=== PATIENT | female | born 1980 | race Caucasian/White ===

== ENCOUNTER 2017-09-21 23:19 | Emergency (ER) | payer OTHER ==
[~2017-09-21] VITALS: Ht 162.6 cm; Wt 70.0 kg
[~2017-09-21 23:19] MED LIST: DICY1TAB26 PO; METH500T3 PO; TRAZ50TA4 PO; ULTR50TA PO; ZOFR4TAB3 SL
[2017-09-21 23:22] VITALS: BP 174/100; PULSE 90; RESP 16; TEMP 97.5; O2SAT 100
--- NOTE | 2017-09-22 00:22 | PD ---
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 Pt. reports that she was concerned because she was diagnosed with gonorrhea at the health department and she thought that contributed to her vaginal bleeding. Pt. reports she has been using a super tampon and a pad changing it every 30-40 minutes. Pt. reports associated nausea, weakness, fatigue and headache. Typically she has normal menstrual cycles. She has had a BTL. PFSH Past Medical History Diminished Hearing: No Gastrointestinal Disorders: Yes (coloitis) Musculoskeletal: Yes (CHRONIC BACK PAIN, BONE TUMOR L SHOULDER) Neurologic: Yes (SCIATICA) Tetanus Vaccination: < 5 Years ?: Not LMP: vaginal bleeding x3 weeks : 3 Para: 3 Tubal Ligation: Yes Past Surgical History Section: Yes (2002) Cholecystectomy: Yes Other Surgery: Yes (BREAST REDUCTION) Social History Alcohol Use: Yes (WEEKLY) Tobacco Use: No (01/12 PPD) Substance Use: No Allergies-Medications (Allergen,Severity, Reaction): Coded Allergies: aspirin (Unverified Allergy, Mild, N&V, 09/21/17) bismuth subsalicylate (Unverified Allergy, Mild, 09/21/17) Reported Meds & Prescriptions Reported Meds & Active Scripts Active Zofran ODT (Ondansetron HCl) 4 Mg Tab 4 Mg SL Q6HR PRN FOR NAUSEA/VOMITING Bentyl (Dicyclomine HCl) 20 Mg Tab 20 Mg PO Q8 PRN Reported Methocarbamol 500 Mg Tab 500 Mg PO Trazodone Hcl (Trazodone HCl) 50 Mg Tab 50 Mg PO HS Ultram (Tramadol HCl) 50 Mg Tab 50 Mg PO Q4H PRN Review of Systems Except as stated in HPI: all other systems reviewed are Neg Physical Exam Narrative GENERAL:Well appearing, no acute distress SKIN: Focused skin assessment warm and dry. HEAD: Atraumatic. Normocephalic. EYES: Pupils equal and round. No injection or drainage. ENT: Moist mucous membranes NECK: Trachea midline. CARDIOVASCULAR: Regular rate and rhythm. No murmur appreciated. RESPIRATORY: Clear to auscultation. Breath sounds equal bilaterally. GASTROINTESTINAL: Abdomen soft, non-tender, nondistended. MUSCULOSKELETAL: No obvious deformities. NEUROLOGICAL: Awake and alert. No obvious cranial nerve deficits. Moving all extremities. PSYCHIATRIC: Appropriate mood and affect; insight and judgment normal. Data Data Last Documented VS Vital Signs Date Time Temp Pulse Resp B/P (MAP) Pulse Ox O2 Delivery O2 Flow Rate FiO2 09/21/17 23:22 97.5 90 16 174/100 (124) 100 Room Air Orders Orders Complete Blood Count With Diff (09/22/17 00:16) Basic Metabolic Panel (Bmp) (09/22/17 00:16) ^ Insert Iv (09/22/17 00:16) Labs Laboratory Tests Test 09/22/17 00:33 White Blood Count 4.3 TH/MM3 Red Blood Count 3.55 MIL/MM3 Hemoglobin 11.5 GM/DL Hematocrit 34.0 % Mean Corpuscular Volume 95.8 FL Mean Corpuscular Hemoglobin 32.5 PG Mean Corpuscular Hemoglobin Concent 33.9 % Red Cell Distribution Width 14.9 % Platelet Count 215 TH/MM3 Mean Platelet Volume 8.0 FL Neutrophils (%) (Auto) 46.4 % Lymphocytes (%) (Auto) 45.2 % Monocytes (%) (Auto) 7.1 % Eosinophils (%) (Auto) 0.9 % Basophils (%) (Auto) 0.4 % Neutrophils # (Auto) 2.0 TH/MM3 Lymphocytes # (Auto) 2.0 TH/MM3 Monocytes # (Auto) 0.3 TH/MM3 Eosinophils # (Auto) 0.0 TH/MM3 Basophils # (Auto) 0.0 TH/MM3 CBC Comment DIFF FINAL Differential Comment MDM Medical Decision Making Medical Screen Exam Complete: Yes Emergency Medical Condition: Yes Interpretation(s) afebrile, hypertension mild anemia Differential Diagnosis menorrhagia, fibroid uterus, anemia Narrative Course This is a 37 year old female who presents to the emergency department with vaginal bleeding that's been going on for 1 month. She has a fairly benign pelvic exam with some scant dark blood. She's had a BTL in the past so I doubt this is a miscarriage. Hemoglobin is 11.5. I think patient is safe for outpatient follow-up with [facility]. Diagnosis Primary Impression: Menorrhagia Qualified Codes: N92.1 - Excessive and frequent menstruation with irregular cycle Patient Instructions: General Instructions Additional Instructions: Heavy bleeding can be caused by many things including: - One of your ovaries not releasing an egg during one or more months - Growths in the uterus called fibroids - A bleeding disorder that prevents your blood from clotting normally - Side effects of some medicines, such as some types of control or blood thinners - A problem with your thyroid (a gland that makes hormones) Return to the emergency department if you: Need to use both tampons and pads at the same time because you are bleeding so much Need to change your pad or tampon during the night Or are feeling lightheaded, weak, dizzy, have chest pain, shortness of breath or are having difficulty exerting yourself Follow up with [facility] at: [facility] [address] [place] [address]. [address] [place] [address] Office Hours Saturday 9:00 am 5:30 pm Saturday 8:00 am 12:00 pm Tuesdays 4:00 6:30 pm Med/Other Pt SpecificInfo: No Change to Meds Disposition: 01 DISCHARGE HOME Condition: Stable Marie Brandt MD Sep 22, 2017 00:22
[2017-09-22 01:01] LABS: BASOPHIL % 0.4 % (0.0-2.0); EOSINOPHIL % 0.9 % (0.0-4.0); HEMO FLAGS DIFF FINAL; LYMPH % 45.2 % (9.0-44.0); MEAN CELL VOLUME 95.8 FL (80.0-100.0); MEAN CORPUSCULAR HEMOGLOBIN 32.5 PG (27.0-34.0); MEAN CORPUSCULAR HGB CONC 33.9 % (32.0-36.0); MONO % 7.1 % (0.0-8.0); NEUT % 46.4 % (16.0-70.0); PLATELET COUNT 215 TH/MM3 (150-450); RED BLOOD COUNT 3.55 MIL/MM3 (4.00-5.30); RED CELL DISTRIBUTION WIDTH 14.9 % (11.6-17.2); WHITE BLOOD COUNT 4.3 TH/MM3 (4.0-11.0)
[2017-09-22 01:20] LABS: BICARBONATE 19.9 MEQ/L (21.0-32.0); POTASSIUM 3.3 MEQ/L (3.5-5.1)
== END 2017-09-22 01:25 | disposition home or self-care (01) ==
LOC: NEPC 23:19
DX: N92.0 Excessive and frequent menstruation with regular cycle (principal); R11.0 Nausea; R53.1 Weakness; R53.83 Other fatigue; R51 Headache
CPT/HCPCS: 80048; 85025; 99283